=== PATIENT | female | born 1960 | race Caucasian/White ===

== ENCOUNTER 2017-09-12 08:57 | Day surgery (SDC) | payer BC ==
[2017-09-12] VITALS (7 sets, daily range): BP systolic 143–175; BP diastolic 59–81; PULSE 61–105; TEMP 97.9–98.6
[~2017-09-12] VITALS: Ht 165.1 cm; Wt 88.0 kg
[~2017-09-12 08:57] MED LIST: OMNICEF 300MG300 MG PO; ULTRAM 50MG TAB50 MG PO; ZOFRAN 4MG T4 MG/TAB PO
== END 2017-09-12 14:50 | disposition home or self-care (01) ==
LOC: SDCO 08:57
DX: N20.0 Calculus of kidney (principal); Z87.442 Personal history of urinary calculi; Z90.710 Acquired absence of both cervix and uterus; Z87.891 Personal history of nicotine dependence
CPT/HCPCS: C1769; C1894; C2617; J0690; J2405; J2704; J3010; J7120

== ENCOUNTER 2018-02-09 06:43 | Day surgery (SDC) | payer BC ==
[2018-02-09] VITALS (13 sets, daily range): BP systolic 122–156; BP diastolic 60–80; PULSE 78–91; TEMP 97.9–98.3
[~2018-02-09] VITALS: Ht 165.2 cm; Wt 87.0 kg
[2018-02-09 07:40] LABS: HEMATOCRIT 45.4 % (37.0-47.0); HEMOGLOBIN 15.9 g/dl (12.5-16.0); MEAN CELL VOLUME 96 fl (80.0-100.0); MEAN CORPUSCULAR HEMOGLOBIN 34 pg (27.0-31.0); MEAN CORPUSCULAR HGB CONC 35 g/dl (33.0-37.0); MEAN PLATELET VOLUME 9.4 fl (7.4-10.4); PLATELET COUNT 328 K/mm3 (130-400); RED BLOOD COUNT 4.72 M/mm3 (4.10-5.30); REDCELL DISTRIBUTION WIDTH-CV 12.6 % (11.5-14.5)
[2018-02-09 07:43] LABS: PROTHROMBIN TIME 11.2 SECONDS (9.7-12.8)
[2018-02-09] MEDS ORDERED: ASPIRIN E.C. 8181 MG PO (07:43)
[2018-02-09] MEDS ORDERED: GLYNASE PRES-T1.5 MG PO (07:44)
[2018-02-09] MEDS ORDERED: LOPRESSOR 225 MG/TAB PO (07:44)
[2018-02-09] MEDS ORDERED: LASIX 20MG TABL20 MG PO (07:45)
[2018-02-09 07:51] LABS: CALCIUM 9.9 mg/dL (8.4-10.2); CREATININE, serum 0.49 mg/dL (0.52-1.25); POTASSIUM 4.2 mmol/L (3.4-5.0)
[2018-02-09] MEDS ORDERED: LIPITOR20 MG PO (10:58)
[2018-02-09 12:41] LABS: CHOLESTEROL RISK RATIO 10.1
== END 2018-02-09 15:05 | disposition home or self-care (01) ==
LOC: COL.CAR 06:43
PROVIDERS: Internal Medicine Cardiovascular Disease
DX: I25.10 Atherosclerotic heart disease of native coronary artery without angina pectoris (principal); R94.39 Abnormal result of other cardiovascular function study; I70.0 Atherosclerosis of aorta; I70.213 Atherosclerosis of native arteries of extremities with intermittent claudication, bilateral legs; I10 Essential (primary) hypertension; E11.9 Type 2 diabetes mellitus without complications; E78.5 Hyperlipidemia, unspecified; I74.10 Embolism and thrombosis of unspecified parts of aorta; Z88.0 Allergy status to penicillin; Z87.891 Personal history of nicotine dependence; Z82.3 Family history of stroke; Z82.49 Family history of ischemic heart disease and other diseases of the circulatory system
CPT/HCPCS: J1644; J2250; J3010; Q9967